=== PATIENT | male | born 1990 | race Asian ===

== ENCOUNTER 2025-04-12 22:57 | Emergency (ER) | payer SELFPAY ==
[~2025-04-12] VITALS: Ht 177.8 cm; Wt 95.0 kg
[2025-04-12 22:59] VITALS: BP 111/81; PULSE 108; RESP 20; TEMP 98.4; O2SAT 96
== END 2025-04-13 01:17 | disposition left against medical advice (07) ==
LOC: ER 22:57
DX: T78.1XXA Other adverse food reactions, not elsewhere classified, initial encounter (principal); Z53.21 Procedure and treatment not carried out due to patient leaving prior to being seen by health care provider; X58.XXXA Exposure to other specified factors, initial encounter